=== PATIENT | female | born 1955 | race Caucasian/White ===

== ENCOUNTER 2016-02-25 08:10 | Inpatient (IN) | payer OTHER ==
[2016-02-25] VITALS (8 sets, daily range): BP systolic 90–125; BP diastolic 59–79; PULSE 84–102; TEMP 36.5–37.1; O2SAT 95–98; Ht 162.6 cm; Wt 77.4 kg
[~2016-02-25] VITALS: Ht 162.6 cm; Wt 77.4 kg
[~2016-02-25 08:10] MED LIST: ACET-1256 PO; CHOL100010 PO; FERR1TAB13 PO; LACTATED RINGER'S 1000ML 1,000 ML IV SCH; MULTTAB58 PO
[2016-02-25 08:45] LABS: BASO % 0.2 %; BASO ABS # 0.02 K/uL (0-0.2); EOS % 2.7 %; HEMATOCRIT 30.3 % (37-47); IG% 0.2 %; LYMPH % 19.3 %; MEAN CELL VOLUME 79.1 fL (80-100); MEAN PLATELET VOLUME 9.9 fL (7.4-10.4); MONO % 9.4 %; NEUT % 68.2 %; PLATELET COUNT 358 K/uL (130-400); RED BLOOD COUNT 3.83 M/uL (4.2-5.4); WHITE BLOOD COUNT 8.27 K/uL (4.8-10.8)
[2016-02-25 09:02] LABS: COMPLETE YES; MEAN CORPUSCULAR HGB CONC 30.4 g/dl (32-36)
--- NOTE | 2016-02-25 09:38 | History & Physical Bridge Note ---
H&P Re-Evaluation Bridge Note: I have examined the patient, reviewed the History & Physical and in the interval since the performance of the History & Physical I have noted the following changes of clinical significance: No changes noted since last seen had 2 u prbc onel 1 week ago denies any continues bleeding per rectum
[2016-02-25] MEDS ORDERED: MIDAZOLAM HCL 1 MG/ML 2ML VIAL ONE (10:12)
[2016-02-25] MEDS ORDERED: PROPOFOL IV EMULSION 10 MG/ML 20 ML VIAL IV ONE (10:12)
[2016-02-25] MEDS ORDERED: ONDANSETRON INJ 2 MG/ML 2 ML VIAL ONE ×2 (10:12→14:06)
[2016-02-25] MEDS ORDERED: DEXAMETHASONE SOD INJ 4 MG/ML VIAL ONE (10:12)
[2016-02-25] MEDS ORDERED: LIDOCAINE HCL 2% 2 ML VIAL (20MG/ML) ONE (10:12)
[2016-02-25] MEDS ORDERED: GLYCOPYRROLATE INJ 0.2 MG/ML VIAL ONE ×2 (10:12→14:06)
[2016-02-25] MEDS ORDERED: NEOSTIGMINE METHYLSULFATE 5 MG/5 ML SYR ONE (10:12)
[2016-02-25] MEDS ORDERED: FENTANYL CITRATE INJ 50 MCG/1 ML 2 ML VIAL ONE (10:13)
[2016-02-25] MEDS ORDERED: SCOPOLAMINE 1.5 MG TDSY TD ONE (11:47)
[2016-02-25] MEDS ORDERED: HYDROmorphone INJ 2 MG/ML SYR/VIAL ONE (12:05)
[2016-02-25] MEDS ORDERED: PHENYLEPHRINE 100MCG/ML 5ML SYR ONE (12:12)
[2016-02-25 12:32] LABS: URINE APPEARANCE CLOUDY (CLEAR); URINE BILIRUBIN NEG (NEG); URINE COLOR YELLOW; URINE NITRITE NEG (NEG); URINE SPECIFIC GRAVITY 1.014 (1.000-1.030); UROBILINOGEN NEG (NEG)
[2016-02-25 12:55] LABS: MANUAL MICROSCOPIC REQUIRED? NO; REVIEW REQ? NO
[2016-02-25] MEDS ORDERED: ONDANSETRON INJ 2 MG/ML 2 ML VIAL IV PRN (14:30)
[2016-02-25] MEDS ORDERED: PROMETHAZINE HCL INJ 12.5 MG in SODIUM CHLORIDE 0.9% 50ML 50 ML IV PRN (14:30)
[2016-02-25] MEDS ORDERED: HYDROmorphone INJ 1 MG/ML SYR IV PRN (14:30)
[2016-02-25] MEDS ORDERED: EpHEDrine SULFATE INJ 50 MG/ML AMP IV PRN (14:30)
[2016-02-25] MEDS ORDERED: NALOXONE HCL 0.4 MG/1 ML VIAL/CARP IV PRN ×2 (14:30→14:45)
[2016-02-25] MEDS ORDERED: FLUMAZENIL 0.1 MG/1 ML 10 ML VIAL IV PRN (14:30)
[2016-02-25] MEDS ORDERED: ATROPINE SULFATE 0.1 MG/ML 5ML SYR IV PRN (14:30)
[2016-02-25] MEDS ORDERED: LABETALOL HCL IV 5 MG/ML 20ML IV PRN (14:30)
[2016-02-25] MEDS: SODIUM CHLORIDE 0.9% 1000ML 1,000 ML IV SCH (14:31)
--- NOTE | 2016-02-25 14:31 | [facility] Post Operative Brief Note ---
Immediate Operative Summary Operative Date Feb 25, 2016. Pre-Operative Diagnosis Adenocarcinoma of Colon Post-Operative Diagnosis Radical Right Colectomy, Cholecystectomy Procedure(s) Performed Radical Right Colectomy, Cholecystectomy Surgeon Dr. De Cornejo Milk Treater Surgeon(s) none Estimated Blood Loss 175ml Findings large right colon lesion with near total occlusion and large mesenteric nodes cholesterolosis gallbladder Specimens A:Right Colon B: Gallbladder and Contents Drains 1/4 ricardo subcut
[2016-02-25] MEDS ORDERED: HYDROmorphone HCL 0.5MG/ML 50 ML CASSETTE ONE (14:45)
[2016-02-25 14:51] LABS: HEMATOCRIT 26.3 % (37-47)
[2016-02-25] MEDS ORDERED: IV FLUIDS COMPLETED PRN (15:15)
[2016-02-25 15:28] LABS: BUN/CREATININE RATIO 6.8 (10-20); CREATININE 0.88 mg/dl (0.60-1.20)
--- NOTE | 2016-02-25 15:38 | Anesthesiology Progress Note ---
Anesthesia Post Op Note Date & Time Feb 25, 2016 at 15:37 Vital Signs Pain Intensity: 0 Vital Signs Past 12 Hours Date Time Temp Pulse Resp B/P Pulse Ox O2 Delivery O2 Flow Rate FiO2 02/25/16 15:25 37.7 91 18 121/72 98 Nasal Cannula 2 02/25/16 15:15 37.7 96 18 118/75 97 Nasal Cannula 2 02/25/16 15:05 95 18 118/75 98 Nasal Cannula 2 02/25/16 14:55 92 14 122/78 98 Mask 10 02/25/16 14:45 90 14 126/78 97 Mask 10 02/25/16 14:36 37.9 82 14 95/52 99 Mask 10 02/25/16 08:44 36.5 84 22 125/76 95 Room Air Notes Mental Status: alert / awake / arousable, participated in evaluation Pt Amnestic to Procedure: Yes Nausea / Vomiting: adequately controlled Pain: adequately controlled Airway Patency, RR, SpO2: stable & adequate BP & HR: stable & adequate Hydration State: stable & adequate Anesthetic Complications: no major complications apparent Dr Cornejo aware of her postop H&H and would prefer to watch for now. Pt stable and doing well.
--- NOTE | 2016-02-25 16:16 | OPERATIVE REPORT ---
DATE OF OPERATION: 02/25/2016 SURGEON: Dr. Cornejo. PREOPERATIVE DIAGNOSIS: Biopsy proven carcinoma right colon. POSTOPERATIVE DIAGNOSES: Same along with chronic cholecystitis. PROCEDURE: Right radical colectomy, cholecystectomy. SUMMARY: The patient was brought into the operating room theater under general anesthesia in supine position. A Whittington catheter was inserted. The abdomen was prepped with Betadine solution and properly draped. Systemic antibiotics were given. We made an incision just at the level of the umbilicus and taken in a cephalad made about 3 inch incision, deepened through subcutaneous tissue. We entered the peritoneal cavity where there was no fluid appreciated. There was no evidence of any metastatic disease. The liver was palpated, it was free of any nodularity. The stomach was smooth. Small bowel was run. There was no pathology identified. No implants down in the pelvic area, but the right colon had a very hard mass, size of a softball that was sort of fixed in the retroperitoneal tissue. We at this point started mobilizing by first dividing the white line of Toldt, elevating the cecum along with the terminal ileum. I elected at this point to divide the terminal ileum about 5 inches from the ileocecal valve, scored the mesentery, that eventually would be scored all the way up to the middle colic vessels. We at this point were able then to elevate partially the cecum without any difficulty, but it made it really difficult to bring out the right colon and pretty much nonmobile. At this point, I enlarged the incision more cephalad to the point that then we came on it in 2 directions, one starting antegrade and one retrograde by first dividing the omentum off the transverse colon developing this plane of dissection till we were able then to elevate the hepatic flexure out, but again we were fixed with this mass that initially was very hard, I could not tell whether or not that may be going into the duodenum. We took our dissection with the retroperitoneal area and found that most of the tissue was just hard and inflamed, but no evidence of very hard tissue or gritty tissue that would make it a direct extension; however, the duodenum the third portion was strictly adherent to the mass that initially I thought it was direct extension even though an endoscopy showed no evidence of any extension into the duodenum. As we mobilized the third portion of the duodenum, going more medially, we were able to get a plane of dissection where the duodenum was completely free. There was no involvement of this and most of the adherence was in the retroperitoneal area, did not involve the renal or the ureter. However, the patient has significant palpable nodes in the mesentery that we would eventually score and take out with the specimen. Even by CAT scan it showed that these large nodes were about 2 cm or so. We continued by first dividing the NENA the terminal ileum then divided the transverse colon just right at the middle colic, we were able then to score the mesentery and ligate it with 2-[address] to its base. There was a small vein that we got into it, a tributary or probably a portal vein as it went underneath the pancreas. We oversewed that with 3-0 silk suture and got that controlled. Prior to doing the anastomosis, once we took the specimen out, I elected to perform a cholecystectomy. The patient has had chronic nausea, we are unsure whether or not it was related to that, we know she had some sludge in the past in the gallbladder; therefore, we took the gallbladder in the antegrade fashion, identifying the cystic duct and ligated with 2-0 silk and clipping it and the cystic artery doubly clipped and divided. Gallbladder was removed in antegrade fashion leaving some of the peritoneum back in the liver bed. Some oozing was appreciated. We packed it off with Gelfoam and with Surgicel and a 4 x 4 we would come back to that. At this point we then closed the mesentery, lining it properly with 3-0 silk suture interruptedly, then we made sure that there was no twisted bowel. Then we did our anastomoses but the 2 staple line were oversewn inverted with 3-0 silk sutures. We did a [id number] anastomosis with 3-0 silk outer layer, 3-0 chromic inner layer, anastomosis was patent. We checked the mesentery, there was no obvious openings. We returned the viscera in the abdomen, we irrigated it copiously. We checked the gallbladder area. There was no further bleeding appreciated. We removed the 4 x 4, took out all the laps. The NG tube was positioned in the stomach, I elected just to clip that overnight. The wound was then closed by #1 PDS [id number]. I also put some retention sutures buried with #2 Vicryl spacing about an inch apart. Subcutaneous tissue was not closed. A quarter inch Shoshana was placed in the subcutaneous and michelle for skin edges. Dressing was applied. The procedure was tolerated well by the patient. Estimated blood loss approximately 175 mL. The patient was taken to the recovery room in good condition. I attest to the content of the Intraoperative Record and any orders documented therein. Any exceptio ns are noted below.
[2016-02-25] MEDS: LACTATED RINGER'S 1000ML 1,000 ML IV SCH (17:29)
[2016-02-25] MEDS: ACETAMINOPHEN IV 1,000 MG in EMPTY BAG 0 ML IV SCH (17:31)
[2016-02-25 17:54] LABS: INR 1.1 (0.9-1.1); PROTHROMBIN TIME (PATIENT) 11.9 SECONDS (9.0-12.0)
[2016-02-25] MEDS: CEFOXITIN IV 2,000 MG in DEXTROSE 5% 50ML 50 ML IV SCH (18:03)
[2016-02-25] MEDS: HEPARIN SOD 5000 UNIT/0.5 ML CARP SQ SCH (21:13)
[2016-02-25] MEDS: HYDROmorphone HCL 0.5MG/ML 50 ML CASSETTE IV PRN (23:01)
[2016-02-26] VITALS (7 sets, daily range): BP systolic 94–108; BP diastolic 56–67; PULSE 76–93; TEMP 36.5–37.1; O2SAT 94–98
[2016-02-26] MEDS: CEFOXITIN IV 2,000 MG in DEXTROSE 5% 50ML 50 ML IV SCH ×2 (00:28→05:49)
[2016-02-26] MEDS: LACTATED RINGER'S 1000ML 1,000 ML IV SCH ×3 (00:28→23:40)
[2016-02-26] MEDS: ACETAMINOPHEN IV 1,000 MG in EMPTY BAG 0 ML IV SCH ×3 (02:06→18:17)
[2016-02-26 04:14] LABS: HEMATOCRIT 24.5 % (37-47); MEAN CORPUSCULAR HEMOGLOBIN 23.5 pg (25-34); MEAN CORPUSCULAR HGB CONC 29.8 g/dl (32-36); MEAN PLATELET VOLUME 9.1 fL (7.4-10.4); PLATELET COUNT 316 K/uL (130-400); WHITE BLOOD COUNT 9.08 K/uL (4.8-10.8)
[2016-02-26 04:33] LABS: BUN/CREATININE RATIO 5.9 (10-20); CALCIUM 8.3 mg/dl (8.5-10.1); CREATININE 0.85 mg/dl (0.60-1.20); POTASSIUM 4.6 mmol/L (3.5-5.1)
[2016-02-26 04:37] LABS: ANISOCYTOSIS PRESENT; COMPLETE YES; HYPOCHROMIA PRESENT; IG% 0.2 %; LYMPH % 6.7 %; LYMPH ABS # 0.61 K/uL (1.2-3.4); MONO % 8.1 %
[2016-02-26] MEDS ORDERED: OXYCODONE/ACETAMINOPHEN 5-325 TAB PO PRN (06:45)
--- NOTE | 2016-02-26 07:07 | SURGERY PROGRESS NOTE ---
DATE: 02/26/2016 DATE: 02/26/2016 Radha is 1st postoperative day status post right radical colectomy and cholecystectomy. She is alert, coherent, having no discomfort, no nausea. Intraoperative findings were discussed with the patient including the CAT scan that may need to extend for the lungs as specific CT scan of the chest to be obtained. PHYSICAL EXAMINATION: The patient's last vitals showed a temperature of 37.1, pulse 78, respirations 16, blood pressure 108/67, O2 sats 94 on 4 liters. I\T\O, she had about 500 mL urine overnight. The NG tube drainage is very minimal. The abdomen is soft. The dressings dry. LABORATORY MARIN: This morning her hemoglobin is 7.3. BUN is 5 and creatinine 0.85. Preoperatively, the hemoglobin was 9.2. Postoperatively, 7.8, so there is no active bleeding. Some of this may be dilutional. I will not transfuse the patient. She is used to having a hemoglobin about 7 or so and there is no evidence that she is having any systemic effects from it. We have not given her any blood or any transfusions since surgery, but she did have 2 units of blood approximately a week ago prior to her surgery for hemoglobin about 7.2 and that was in anticipation of surgery. At this point we will increase activity, discontinue the NG tube and discontinue the Whittington and may minimally start her on some clear liquids.
[2016-02-26] MEDS: HYDROmorphone HCL 0.5MG/ML 50 ML CASSETTE IV PRN ×3 (07:09→22:52)
[2016-02-26] MEDS: HEPARIN SOD 5000 UNIT/0.5 ML CARP SQ SCH ×2 (08:45→21:17)
[2016-02-26] MEDS: SODIUM CHLORIDE 0.9% 1000ML 1,000 ML IV SCH (14:12)
[2016-02-27] VITALS (11 sets, daily range): BP systolic 102–144; BP diastolic 64–88; PULSE 64–84; TEMP 36.6–39.8; O2SAT 91–98
[2016-02-27] MEDS: ACETAMINOPHEN IV 1,000 MG in EMPTY BAG 0 ML IV SCH ×3 (01:42→17:55)
[2016-02-27 06:35] LABS: HEMATOCRIT 22.8 % (37-47); MEAN CELL VOLUME 81.1 fL (80-100); MEAN CORPUSCULAR HEMOGLOBIN 23.8 pg (25-34); MEAN CORPUSCULAR HGB CONC 29.4 g/dl (32-36); MEAN PLATELET VOLUME 9.3 fL (7.4-10.4); PLATELET COUNT 307 K/uL (130-400); RED BLOOD COUNT 2.81 M/uL (4.2-5.4); WHITE BLOOD COUNT 9.29 K/uL (4.8-10.8)
[2016-02-27 06:55] LABS: BUN/CREATININE RATIO 8.3 (10-20); CALCIUM 8.5 mg/dl (8.5-10.1); CREATININE 0.78 mg/dl (0.60-1.20); POTASSIUM 3.9 mmol/L (3.5-5.1)
[2016-02-27 07:02] LABS: ANISOCYTOSIS PRESENT; BASO % 0.1 %; BASO ABS # 0.01 K/uL (0-0.2); COMPLETE YES; EOS % 0.2 %; HYPOCHROMIA PRESENT; IG% 0.2 %; LYMPH % 22.3 %; LYMPH ABS # 2.07 K/uL (1.2-3.4); MICROCYTOSIS PRESENT; MONO % 8.9 %; NEUT % 68.3 %
--- NOTE | 2016-02-27 07:04 | SURGERY PROGRESS NOTE ---
DATE: 02/27/2016 HISTORY OF PRESENT ILLNESS: Radha is resting comfortably in no distress. Her color looks good. She is stating that she has not used her [employer] for any pain management since the acetaminophen seemed to be sufficient. Her last vitals showed a temperature of 36.7, pulse 84, respirations 17, blood pressure 102/64, O2 sats 98 on 4 liters. Her I\T\O have been slightly positive. She had 625 of urine yesterday. Her lab this morning, the PRP is pending, but the hemoglobin which was 7.3 yesterday, is down to 6.7. Clinically, she has no manifestation of any acute bleed, I think this is all equilibration, but having said so, I think will transfuse 1 unit of blood because yesterday sometimes in the day she became a little bit tachycardic. She has had no significant hypotension. The oxygen I have asked initially to take her off at this point, but I think we will keep her off for now, but we will discontinue the SCDs as she is on heparin. Her abdomen is completely benign. She feels she has some rumbling and has not passed any flatus, which I would suspect will start to happen in the next 24 hours. JIM
[2016-02-27] MEDS: LACTATED RINGER'S 1000ML 1,000 ML IV SCH ×3 (07:50→17:54)
[2016-02-27] MEDS: HEPARIN SOD 5000 UNIT/0.5 ML CARP SQ SCH ×2 (09:51→21:37)
[2016-02-27 16:28] LABS: BASO % 0.1 %; BASO ABS # 0.01 K/uL (0-0.2); EOS % 1.2 %; IG% 0.2 %; LYMPH ABS # 2.57 K/uL (1.2-3.4); MEAN CELL VOLUME 81.4 fL (80-100); MEAN CORPUSCULAR HEMOGLOBIN 24.4 pg (25-34); MEAN PLATELET VOLUME 9.5 fL (7.4-10.4); MONO % 9.9 %; NEUT % 59.6 %; PLATELET COUNT 287 K/uL (130-400); RED BLOOD COUNT 3.07 M/uL (4.2-5.4); WHITE BLOOD COUNT 8.87 K/uL (4.8-10.8)
[2016-02-27 17:05] LABS: COMPLETE YES; HYPOCHROMIA PRESENT; POLYCHROMASIA 1+
[2016-02-27] MEDS: ONDANSETRON INJ 2 MG/ML 2 ML VIAL IV PRN (22:53)
[2016-02-28] MEDS: ACETAMINOPHEN IV 1,000 MG in EMPTY BAG 0 ML IV SCH ×2 (01:39→09:40)
[2016-02-28] MEDS: ONDANSETRON INJ 2 MG/ML 2 ML VIAL IV PRN (05:39)
[2016-02-28 06:55] LABS: HEMATOCRIT 28.8 % (37-47); MEAN CELL VOLUME 80.2 fL (80-100); MEAN CORPUSCULAR HEMOGLOBIN 23.7 pg (25-34); MEAN CORPUSCULAR HGB CONC 29.5 g/dl (32-36); MEAN PLATELET VOLUME 9.9 fL (7.4-10.4); PLATELET COUNT 340 K/uL (130-400); RED BLOOD COUNT 3.59 M/uL (4.2-5.4); WHITE BLOOD COUNT 5.63 K/uL (4.8-10.8)
[2016-02-28] MEDS: HEPARIN SOD 5000 UNIT/0.5 ML CARP SQ SCH (07:40)
[2016-02-28] MEDS ORDERED: OXYC-57 PO (07:41)
--- NOTE | 2016-02-28 07:43 | Discharge Instructions ---
Discharge Instructions Admission Reason for Admission: Colon Cancer Discharge Discharge Diagnosis / Problem: Right colectomy Discharge Goals Goal(s): Improve disease control Activity Recommendations Activity Limitations: per Instructions/Follow-up section Lifting Limitations: no more than 10 pounds Shower/Bathe: no limitations (ok to shower) Driving or Machine Use: resume 3 days after discharge . Instructions / Follow-Up Instructions / Follow-Up Next week to have michelle removed, call [phone] if you do not already have an appt Current Hospital Diet Patient's current hospital diet: Clear Liquid Diet Discharge Diet Recommended Diet: Regular Diet Procedures Procedures Performed: Radical Right Colectomy, Cholecystectomy Pending Studies Studies pending at discharge: no Medical Emergencies . Who to Call and When: Medical Emergencies: If at any time you feel your situation is an emergency, please call 911 immediately. . Non-Emergent Contact Non-Emergency issues call your: Surgeon Call Non-Emergent contact if: you have a fever, temperature is above 101.5, your pain is not controlled, wound has increased redness, wound has increased pain . "Provider Documentation" section prepared by David Mcleod. VTE Core Measure Inpt VTE Proph given/why not?: Unfractionated heparin SQ, SCD's
[2016-02-28 08:01] VITALS: BP 126/74; PULSE 72; TEMP 36.9; O2SAT 94
--- NOTE | 2016-02-28 11:12 | Surgery Progress Note ---
Surgery Progress Note Date of Service Feb 28, 2016. Subjective tolerating diet (regular this AM), anxious to go home Objective Vital Signs: Date Time Temp Pulse Resp B/P Pulse Ox O2 Delivery O2 Flow Rate FiO2 02/28/16 08:24 Room Air 02/28/16 08:01 36.9 72 20 126/74 94 Room Air 02/28/16 07:20 Room Air 02/27/16 22:50 Room Air 02/27/16 22:47 36.9 75 16 144/88 94 Room Air 02/27/16 15:15 91 Room Air 02/27/16 15:09 36.7 82 18 127/81 91 Room Air 02/27/16 12:55 36.6 75 16 120/76 93 Room Air Abdomen: non distended, soft Incision(s): clean, dry Laboratory Results: Results Past 24 Hours Test 02/27/16 16:15 02/28/16 06:30 Range/Units White Blood Count 8.87 5.63 4.8-10.8 K/uL Red Blood Count 3.07 3.59 4.2-5.4 M/uL Hemoglobin 7.5 8.5 12.0-16.0 g/dL Hematocrit 25.0 28.8 37-47 % Mean Corpuscular Volume 81.4 80.2 80-100 fL Mean Corpuscular Hemoglobin 24.4 23.7 25-34 pg Mean Corpuscular Hemoglobin Concent 30.0 29.5 32-36 g/dl Platelet Count 287 340 130-400 K/uL Mean Platelet Volume 9.5 9.9 7.4-10.4 fL Neutrophils (%) (Auto) 59.6 % Lymphocytes (%) (Auto) 29.0 % Monocytes (%) (Auto) 9.9 % Eosinophils (%) (Auto) 1.2 % Basophils (%) (Auto) 0.1 % Neutrophils # (Auto) 5.28 1.4-6.5 K/uL Lymphocytes # (Auto) 2.57 1.2-3.4 K/uL Monocytes # (Auto) 0.88 0.11-0.59 K/uL Eosinophils # (Auto) 0.11 0-0.5 K/uL Basophils # (Auto) 0.01 0-0.2 K/uL RDW Standard Deviation 54.9 53.8 36.4-46.3 fL RDW Coefficient of Variation 18.4 18.1 11.5-14.5 % Immature Granulocyte % (Auto) 0.2 % Immature Granulocyte # (Auto) 0.02 0.00-0.02 K/uL Polychromasia 1+ Hypochromasia PRESENT Assessment & Plan s/p right colectomy tolerating diet ok for discharge f/u next week for staple removal
[2016-02-28 11:46] VITALS: BP 126/74; PULSE 72; TEMP 36.9; O2SAT 94
[2016-02-28] MEDS: LACTATED RINGER'S 1000ML 1,000 ML IV SCH (11:46)
--- NOTE | 2016-02-28 15:44 | DISCHARGE SUMMARY ---
PRIMARY DISCHARGE DIAGNOSIS: 1. Right colon cancer. 2. Acute on chronic anemia. 3. Chronic cholecystitis. PROCEDURE PERFORMED: Radical right colectomy and cholecystectomy. HOSPITAL COURSE: The patient is a 61-year-old female with a biopsy proven carcinoma of the right colon, admitted through same day and taken to the operating room for right colectomy and cholecystectomy. Procedure was well tolerated. She was transferred to the surgical floor. On postoperative day 1 her hemoglobin dropped to 7.3 from 9 preoperatively, but she remained hemodynamically stable and was not transfused at that time. Nasogastric tube and Whittington catheter was removed. She was started on liquid diet. By day 2 she was tolerating IV acetaminophen for pain. Her hemoglobin dropped again to 6.7. She was transfused 1 unit of packed red blood cells. On the next day, day 3, her hemoglobin had improved to 8.5. She had multiple bowel movements. She was able to tolerate an advancing diet to regular. Her incision was clean and dry. She was stable for discharge. Pathology was pending at time the time of discharge. DISCHARGE INSTRUCTIONS: Discharge home. Follow up with Dr. Cornejo in 1 week. DISCHARGE MEDICATIONS: Percocet 1-2 tablets every 4 hours as needed, resume her home supplements, vitamin D, multivitamin and ferrous sulfate. Hold additional Tylenol while she is taking Percocet.
[2016-03-17] MEDS ORDERED: ACET-1311 PO (16:16)
[2016-03-17] MEDS ORDERED: MISCTAB26 PO (16:16)
[2016-03-17] MEDS ORDERED: MISCCAP80 PO (16:16)
== END 2016-02-28 12:20 | disposition home or self-care (01) | DRG 330 ==
LOC: ENRESERVDT → ENRESERVTM → C.ACU 08:10 → C.MSW 14:42 → OBSVTOIN 02-26 08:43
PROVIDERS: ADMIT Surgery; ATTEND Surgery
PROC: 0FT40ZZ Resection of Gallbladder, Open Approach (ICD-10-PCS; principal; 2016-02-25 09:45)
PROC: 0DBK0ZZ Excision of Ascending Colon, Open Approach (ICD-10-PCS; principal; 2016-02-25 09:45)
DX: C18.2 Malignant neoplasm of ascending colon (principal); K80.10 Calculus of gallbladder with chronic cholecystitis without obstruction; D64.9 Anemia, unspecified; E66.9 Obesity, unspecified; Z68.32 Body mass index [BMI] 32.0-32.9, adult; Z87.891 Personal history of nicotine dependence

== ENCOUNTER → 2016-03-17 | Outpatient (CLI) | payer OTHER ==
[~2016-03-17] MED LIST changes: -ACET-1256 PO; +ACET-1311 PO; -LACTATED RINGER'S 1000ML 1,000 ML IV SCH; +MISCCAP80 PO; +MISCTAB26 PO; +OPTIRAY 320 IV PRN; +OXYC-57 PO
--- NOTE | 2016-03-17 09:58 | DIAGNOSTIC IMAGING REPORT ---
CT SCAN OF THE CHEST WITH IV CONTRAST CLINICAL HISTORY: Adenocarcinoma of the colon. COMPARISON STUDY: No priors. TECHNIQUE: Following the IV administration of 94 cc of Optiray 320, CT scan of the thorax was performed from the thoracic inlet to the upper abdomen. Images are reviewed in the axial, sagittal, and coronal planes. IV contrast was administered without complication. CT DOSE: 278.87 mGy.cm FINDINGS: Thyroid: Imaged portions of the thyroid gland are normal in size and attenuation. Thoracic aorta: There is mild after carotid calcification of the thoracic aorta, which is normal in caliber and demonstrates 4-vessel variant arch anatomy. No dissection is seen. Pulmonary vasculature: The pulmonary trunk is normal in caliber. There are no filling defects identified in the central pulmonary vessels to indicate pulmonary embolus. Note that this examination was not protocoled for evaluation of the pulmonary arteries. Heart: The heart is normal in size and configuration, and without pericardial effusion. Lungs and pleural spaces: There is no airspace consolidation or pleural effusion. Numerous calcified granulomas are identified. The trachea and central airways are clear. There is a 5 mm noncalcified left lower lobe nodule seen on image #189. Mediastinum: There is no mediastinal lymphadenopathy. Calcified mediastinal nodes are identified. Nasrin: Calcified hilar nodes are identified. Axillae: There is no axillary lymphadenopathy. Upper abdomen: Cholecystectomy clips are identified. There are scattered diverticula seen in the partially imaged left colon. Calcified splenic granulomas are noted. Partially imaged upper abdominal viscera is otherwise within normal limits. Skeletal structures: The skeletal structures are osteopenic. No lytic or blastic bony lesions are seen. A large hemangioma is seen in the body of T4. IMPRESSION: 1. There is no evidence of intrathoracic metastatic disease. 2. There is no airspace consolidation or pleural effusion. 3. There are calcified mediastinal and hilar lymph nodes, numerous calcified pulmonary granulomas, as well as calcified splenic granulomas. The appearance is consistent with remote granulomatous infection. 4. There is an indeterminant but low suspicion 5 mm noncalcified left lower lobe pulmonary nodule. This can be followed as per the Fleischner criteria. See below. Please refer to below summary of Fleischner criteria recommendations for follow-up of incidental CT nodules (Zhen Motta, Guidelines for management of small pulmonary nodules detected on CT scans: A statement from the Fleischner Society, Radiology 237: [id number].) Low Risk Patient: Minimal or no smoking or other known risk factors for malignancy <=4 mm: No follow-up needed. >4-6 mm: Initial follow-up CT at 12 months; if unchanged, no further follow-up. >6-8 mm: Initial follow-up CT at 6-12 months then at 18-24 months if no change. >8 mm: Follow-up CT at \R\3, 9, 24 months, or PET and/or biopsy. High Risk Patient: History of smoking or other known risk factors <=4 mm: Follow-up at 12 months; if unchanged, no further follow-up. >4-6 mm: Initial follow-up CT at 6-12 months then at 18-24 months if no change. >6-8 mm: Initial follow-up CT at 3-6 months then at 9-12 and 24 months if no change. >8 mm: Same as low risk patient. Note: Nodule size measured as average of length and width. Ground glass or partly solid nodules may require longer follow-up to exclude indolent adenocarcinoma. Electronically signed by: Santos Pride M.D. 03/17/2016 9:56 AM Dictated Date/Time: 03/17/2016 9:44 AM
== END | disposition home or self-care (01) ==
LOC: C.CTS 08:53
PROVIDERS: ATTEND Surgery
DX: C18.9 Malignant neoplasm of colon, unspecified (principal); R59.9 Enlarged lymph nodes, unspecified; J84.10 Pulmonary fibrosis, unspecified; D73.89 Other diseases of spleen; R91.1 Solitary pulmonary nodule

== ENCOUNTER 2016-03-24 10:15 | Day surgery (SDC) | payer OTHER ==
[2016-03-17 16:17] VITALS: BMI 29.0
[~2016-03-24] VITALS: Ht 162.6 cm; Wt 78.6 kg
--- NOTE | 2016-03-24 05:54 | History & Physical Bridge Note ---
H&P Re-Evaluation Bridge Note: I have examined the patient, reviewed the History & Physical and in the interval since the performance of the History & Physical I have noted the following changes of clinical significance: No changes noted pt onel 3 wweks post op right radical resection for ca with positive nodes here for a-port placement for anticipated chemo
[~2016-03-24 10:15] MED LIST changes: +LACTATED RINGER'S 1000ML 1,000 ML IV SCH; -OPTIRAY 320 IV PRN; -OXYC-57 PO
[2016-03-24 10:25] VITALS: BP 132/72; PULSE 83; TEMP 36.7; Ht 162.6 cm; Wt 78.6 kg
[2016-03-24] MEDS ORDERED: MIDAZOLAM HCL 1 MG/ML 2ML VIAL ONE ×2 (12:35→12:50)
[2016-03-24] MEDS ORDERED: FENTANYL CITRATE INJ 50 MCG/1 ML 2 ML VIAL ONE (12:35)
[2016-03-24] MEDS ORDERED: ONDANSETRON INJ 2 MG/ML 2 ML VIAL ONE (13:19)
[2016-03-24] MEDS ORDERED: LIDOCAINE HCL 2% 2 ML VIAL (20MG/ML) ONE (13:19)
[2016-03-24] MEDS ORDERED: PROPOFOL IV EMULSION 10 MG/ML 20 ML VIAL IV ONE (13:19)
[2016-03-24] MEDS ORDERED: CEFAZOLIN SOD 1 GM VIAL ONE (13:21)
[2016-03-24] MEDS ORDERED: BACITRACIN 50000 UNIT VIAL IR ONE (13:33)
[2016-03-24] MEDS ORDERED: LIDOCAINE HCL 1% 20 ML VIAL INJ ONE (13:33)
--- NOTE | 2016-03-24 13:42 | [facility] Post Operative Brief Note ---
Immediate Operative Summary Operative Date Mar 24, 2016. Pre-Operative Diagnosis Adenocarinoma of Colon Post-Operative Diagnosis Adenocarinoma of Colon Procedure(s) Performed Infusaport Insertion mri compatible left subclavian Surgeon Dr. Cornejo [employer] Surgeon(s) 0 Estimated Blood Loss 3 mL Findings as preop Specimens None Anesthesia .5% marcaine plain 10cc
[2016-03-24] MEDS ORDERED: OXYC-57 PO (13:43)
[2016-03-24] MEDS ORDERED: HYDROmorphone INJ 1 MG/ML SYR IV PRN (13:45)
[2016-03-24] MEDS ORDERED: PROMETHAZINE HCL INJ 12.5 MG in SODIUM CHLORIDE 0.9% 50ML 50 ML IV PRN (13:45)
[2016-03-24] MEDS ORDERED: ATROPINE SULFATE 0.1 MG/ML 5ML SYR IV PRN (13:45)
[2016-03-24] MEDS ORDERED: EpHEDrine SULFATE INJ 50 MG/ML AMP IV PRN (13:45)
[2016-03-24] MEDS ORDERED: ONDANSETRON INJ 2 MG/ML 2 ML VIAL IV PRN (13:45)
--- NOTE | 2016-03-24 13:45 | Discharge Instructions ---
Discharge Instructions Visit Reason for Visit: Colon Cancer Discharge Discharge Diagnosis / Problem: s/p mri compatible port left subclavian Discharge Goals Goal(s): Decrease discomfort Activity Recommendations Lifting Limitations: no more than 10 pounds Shower/Bathe: tomorrow Driving or Machine Use: resume 3 days after discharge Anesthesia . Post Anesthesia Instructions: If you have had General Anesthesia or IV Sedation: * Do not drive today. * Resume driving when surgeon permits. * Do not make important decisions or sign legal documents today. * Call surgeon for: 1. Temperature elevations greater than 101 degrees F. 2. Uncontrollable pain. 3. Excessive bleeding. 4. Persistent nausea and vomiting. 5. Medication intolerance (nausea, vomiting or rash). * For nausea and vomiting use only clear liquids such as: tea, soda, bouillon until nausea subsides, then gradually increase diet as tolerated. * If you have any concerns or questions, call your surgeon's office. If physician is unavailable and it is an emergency, call 911 or go to the nearest emergency room. . Instructions / Follow-Up Instructions / Follow-Up call [phone] for any problems return office 1 week Diet Recommendations Recommended Home Diet: resume previous diet Procedures Procedures Performed: Infusaport Insertion mri compatible left subclavian Medical Emergencies . Who to Call and When: Medical Emergencies: If at any time you feel your situation is an emergency, please call 911 immediately. . Non-Emergent Contact . . "Provider Documentation" section prepared by De Cornejo.
[2016-03-24] MEDS ORDERED: LACTATED RINGER'S 1000ML 1,000 ML IV SCH (13:46)
[2016-03-24] MEDS ORDERED: OXYCODONE/ACETAMINOPHEN 5-325 TAB PO PRN (14:00)
--- NOTE | 2016-03-24 14:11 | Anesthesiology Progress Note ---
Anesthesia Post Op Note Date & Time Mar 24, 2016 at 14:11 Vital Signs Pain Intensity: 0 Vital Signs Past 12 Hours Date Time Temp Pulse Resp B/P Pulse Ox O2 Delivery O2 Flow Rate FiO2 03/24/16 14:05 71 16 107/70 95 Room Air 03/24/16 13:55 70 16 112/72 92 Room Air 03/24/16 13:45 36.4 71 16 110/70 100 Room Air 03/24/16 10:25 36.7 83 20 132/72 Notes Mental Status: alert / awake / arousable, participated in evaluation Pt Amnestic to Procedure: Yes Nausea / Vomiting: adequately controlled Pain: adequately controlled Airway Patency, RR, SpO2: stable & adequate BP & HR: stable & adequate Hydration State: stable & adequate Anesthetic Complications: no major complications apparent
[2016-03-24 14:15] VITALS: PULSE 76
[2016-03-24 14:25] VITALS: BP 104/71; TEMP 36.5; O2SAT 95
--- NOTE | 2016-03-24 14:49 | DIAGNOSTIC IMAGING REPORT ---
CHEST ONE VIEW PORTABLE CLINICAL HISTORY: /p mri compatible port left subclavian COMPARISON STUDY: No previous studies for comparison. FINDINGS: The bones soft tissues and hemidiaphragms are normal. The cardiomediastinal silhouette is normal. The lungs are clear. The pulmonary vasculature is normal. Central catheter in superior vena cava. Port is MRI compatible IMPRESSION: MRI compatible central port. Negative chest. Electronically signed by: Demetrius Moreno M.D. 03/24/2016 2:48 PM Dictated Date/Time: 03/24/2016 2:42 PM
--- NOTE | 2016-03-24 14:58 | OPERATIVE REPORT ---
DATE OF OPERATION: 03/24/2016 SURGEON: Dr. Cornejo. PREOPERATIVE DIAGNOSIS: Metastatic colon cancer, need for chemotherapy. POSTOPERATIVE DIAGNOSIS: Same. PROCEDURE: MRI compatible port placed in left subclavian. DESCRIPTION OF PROCEDURE: The patient was brought into the operating room. A roll placed underneath her shoulders. Chest and neck was prepped with Betadine scrubbing solution and properly draped. Systemic antibiotics was given, some IV sedation was given and then we used 0.5% Marcaine, total of about 10 mL to first infiltrate the angle of the clavicle in the left side, sufficient enough to achieve anesthetic. I then placed the patient in Trendelenburg position. We accessed the subclavian vein on the second passage without any problems. Guidewire fluoroscopically positioned in superior vena cava. At this point, 2 fingerbreadths below, I made a counter incision about 2 inches long, deepened through subcutaneous tissue onto the chest wall. We actually went above the superficial fascia to create a pocket sufficient enough thin on the skin and had to be able to feel the MRI compatible port. We checked the pocket that it was sufficient to accommodate the port. At this point, we tunneled more cephalad and we were able to place a guidewire through this and bring it through this incision where fluoroscopically we could see the guidewire still in the superior vena cava. We dilated the tract with the introducer and placed the catheter and went up to about 25 cm or so positioned in superior vena cava right atrial area. We at this point cut it appropriately. Placed the black marker on and secured onto the catheter. I placed it on the reservoir. We aspirated and flushed quite easily. The rest were then placed in the previously made pocket, suturing it 3/4 sutures with 2-0 Prolene. We imaged the system. The catheter appeared to be in the atrium, but the patient has fairly large breast that once we elevated up, it would be up towards the superior vena cava. We closed the wound after we flushed it percutaneously to check again the access in the field without problem with 2-0 and 3-0 Dexon and 4-0 Monocryl. Steri-Strips applied. The procedure was tolerated well by the patient and was taken to recovery room in good condition. At this time, a chest x-ray is pending. I attest to the content of the Intraoperative Record and any orders documented therein. Any exceptions are noted below. MTDD
[2016-03-24 15:00] VITALS: BP 104/71; TEMP 36.7; O2SAT 97
== END 2016-03-24 15:13 | disposition home or self-care (01) ==
LOC: C.ACU 10:15
PROVIDERS: ATTEND Surgery
DX: C18.9 Malignant neoplasm of colon, unspecified (principal); Z88.1 Allergy status to other antibiotic agents; Z90.49 Acquired absence of other specified parts of digestive tract; Z87.891 Personal history of nicotine dependence; Z68.29 Body mass index [BMI] 29.0-29.9, adult; Z80.3 Family history of malignant neoplasm of breast; Z90.89 Acquired absence of other organs; Z82.3 Family history of stroke; Z82.49 Family history of ischemic heart disease and other diseases of the circulatory system

== ENCOUNTER → 2016-09-15 | Outpatient (CLI) | payer OTHER ==
[~2016-09-15] MED LIST changes: -LACTATED RINGER'S 1000ML 1,000 ML IV SCH; +OPTIRAY 320 IV PRN; +OXYC-57 PO
--- NOTE | 2016-09-15 12:07 | DIAGNOSTIC IMAGING REPORT ---
(CHEST) THORAX WITH CT DOSE: 694.14 mGy.cm HISTORY: Adenocarcinoma C18.2 TECHNIQUE: Multiaxial CT images of the chest were performed following the intravenous administration of contrast. A dose lowering technique was utilized adhering to the principles of ALARA. COMPARISON: 03/17/2016 FINDINGS: No change in the prior study. Unchanging calcified mediastinal and hilar nodes. Unchanging calcified granulomas. Unchanging 5 mm nodular density left lung base. There are no new or interval findings. IMPRESSION: 1. Unchanged study compared to the prior exam. 2. Unchanging chronic granulomatous change. 3. Unchanging 5 mm noncalcified nodule left base. Prior L4. Continued follow-up per Fleischner criteria. Please refer to below summary of Fleischner criteria recommendations for follow-up of incidental CT nodules (Zhen Motta, Guidelines for management of small pulmonary nodules detected on CT scans: A statement from the Fleischner Society, Radiology 237: [phone].) SOLID NODULES Solitary nodule size: <6 mm * low risk patients: no follow-up needed * high risk patients: optional CT at 12 months Solitary nodule size: 6-8 mm * low risk patients: follow-up at 6-12 months, then consider further follow-up at 18-24 months * high risk patients: initial follow-up CT at 6-12 months and then at 18-24 months if no change Solitary nodule size: >8 mm * either low or high risk patients - consider follow-up CT at 3 months, and/or CT-PET, and/or biopsy Multiple nodules size: <6 mm * low risk patients: no routine follow-up * high risk patients: optional CT at 12 months Multiple nodules size: 6-8 mm * low risk patients: follow-up at 3-6 months, then consider further follow-up at 18-24 months * high risk patients: follow-up at 3-6 months, then at 18-24 months if no change Multiple nodules size: >8 mm * low risk patients: follow-up at 3-6 months, then consider further follow-up at 18-24 months * high risk patients: follow-up at 3-6 months, then at 18-24 months if no change Note: newly detected indeterminate nodule in persons 35 years of age or older. * Low risk patients: minimal or absent history of smoking and/or other known risk factors * high risk patients: history of smoking or of other known risk factors (e.g. first degree relative with lung cancer, or exposure to asbestos, radon, uranium) * if a nodule up to 8 mm is partly solid or is ground glass further follow-up is required after 24 months to exclude possible slow growing adenocarcinoma (SILVANA) SUBSOIL NODULES Solitary pure ground-glass nodule * nodule size <6 mm - no CT follow-up required * nodule size >=6 mm - follow-up CT at 6-12 months, then every 2 years until 5 years Solitary part-solid nodule * nodule size <6 mm - no CT follow-up required * nodule size >=6 mm - follow-up CT at 3-6 months. If unchanged, and solid component remains <6 mm, then annual follow-up for 5 years Multiple subsolid nodules * nodule size <6 mm - follow-up CT at 3-6 months, consider further follow-up at 2 and 4 years if stable * nodule size >=6 mm - follow-up CT at 3-6 months, subsequent management based on the most suspicious nodule(s) The above report was generated using voice recognition software. It may contain grammatical, syntax or spelling errors. Electronically signed by: Demetrius Moreno M.D. 09/15/2016 12:06 PM Dictated Date/Time: 09/15/2016 12:03 PM
--- NOTE | 2016-09-15 12:38 | DIAGNOSTIC IMAGING REPORT ---
CT OF THE ABDOMEN AND PELVIS WITH CONTRAST CLINICAL HISTORY: Colon cancer. CT for restaging. COMPARISON STUDY: CT of the abdomen and pelvis February 12, 2016. TECHNIQUE: Following IV administration of 94 mL of Optiray-320, axial images of the abdomen and pelvis were obtained from the lung bases to the proximal femurs. Images were reviewed in the axial, sagittal, and coronal planes. IV contrast was administered without complication. A dose lowering technique was utilized adhering to the principles of ALARA. Oral contrast was administered. FINDINGS: Note is made of a enlarged right paraaortic lymph node shown on axial image 56 of 466. This is adjacent to the distal descending thoracic aorta. This node measures 2.3 x 1.6 cm. There has been interval development of upper abdominal lymphadenopathy, including a 3.2 x 2.4 cm aortocaval lymph node shown on image 171. An index left para-aortic lymph node located inferior to the left renal vein measures 1.9 x 2.3 cm and is shown on image 149. An index right para-aortic lymph node measures 1.8 x 1.4 cm. There are multiple mildly enlarged mesenteric lymph nodes as well. There is no evidence for a bowel obstruction status post right hemicolectomy. No hepatic lesions are identified. There are calcified granulomas within the spleen. The adrenal glands, kidneys and pancreas are unremarkable. There is no hydronephrosis. There is no biliary or pancreatic ductal dilatation status post cholecystectomy. IMPRESSION: 1. Interval development of numerous moderately enlarged upper abdominal lymph nodes, including mesenteric and retroperitoneal/paraaortic lymphadenopathy. Index aortocaval lymph node measures 2.2 x 2.4 cm with mild mass effect upon the IVC. The findings are consistent with jaye spread of disease. 2. No bowel obstruction status post right hemicolectomy. 3. Colonic diverticulosis without evidence for acute diverticulitis. Electronically signed by: Georges Venegas M.D. 09/15/2016 12:36 PM Dictated Date/Time: 09/15/2016 12:22 PM
== END | disposition home or self-care (01) ==
LOC: C.CTS 11:37
PROVIDERS: ATTEND Internal Medicine Hematology & Oncology
DX: C18.2 Malignant neoplasm of ascending colon (principal); R59.0 Localized enlarged lymph nodes; K57.90 Diverticulosis of intestine, part unspecified, without perforation or abscess without bleeding; R91.1 Solitary pulmonary nodule

== ENCOUNTER → 2016-12-16 | Outpatient (CLI) | payer OTHER ==
[~2016-12-16] MED LIST changes: -OXYC-57 PO
--- NOTE | 2016-12-16 07:56 | DIAGNOSTIC IMAGING REPORT ---
CT ABD/PELVIS IV AND ORAL CONT CLINICAL HISTORY: COLON CA COMPARISON STUDY: 09/15/2016 TECHNIQUE: Following the IV administration of 92 mL of Optiray-320, CT scan of the abdomen and pelvis was performed from the lung bases to the proximal femurs. Images are reviewed in the axial, sagittal, and coronal planes. IV contrast was administered without complication. A dose lowering technique was utilized adhering to the principles of ALARA. CT DOSE: FINDINGS: Lower chest: There are bibasal atelectatic changes. There are left lower lobe calcified granulomas. Liver: There is mild hepatic steatosis. No focal hepatic masses are visualized. Gallbladder: Surgically absent Spleen: There are splenic granulomas. No suspicious splenic masses are visualized. Pancreas: Unremarkable. Adrenal glands: Unremarkable. Kidneys: There is symmetric renal cortical enhancement. The kidneys are normal in size without hydronephrosis. Bowel: There are no transition zones indicate bowel obstruction. There is colonic diverticulosis. There are no acute peridiverticular inflammatory changes. There are postsurgical changes of a right hemicolectomy. Peritoneum: There is no intraperitoneal free air or abdominal ascites. Vasculature: The abdominal aorta is normal in course and caliber. Adenopathy: There is been interval decrease in the size of the previously identified enlarged central mesenteric lymph nodes.. There is minimal infiltration of the central mesenteric fat. There is interval decrease in the size of the aortocaval nodes. The largest measures 11 mm in short axis compared to a prior diameter of 24 mm. An index left para-aortic lymph node at the level of the renal hilum, currently measures 1 cm compared to a prior diameter of 19 mm. Pelvic viscera: The bladder, and pelvic viscera are unremarkable. Skeletal structures: No destructive osseous lesions are seen. IMPRESSION: 1. No CT evidence of hepatic metastasis 2. Postsurgical changes of a right hemicolectomy 3. Interval decrease in the size of the mesenteric and retroperitoneal lymph nodes. Electronically signed by: Miguel Garcia M.D. 12/16/2016 7:55 AM Dictated Date/Time: 12/16/2016 7:49 AM
--- NOTE | 2016-12-16 08:06 | DIAGNOSTIC IMAGING REPORT ---
CT OF THE CHEST WITH IV CONTRAST CLINICAL HISTORY: COLON CA COMPARISON STUDY: 09/15/2016 TECHNIQUE: Following the IV administration of 92 mL of Optiray-320, CT of the thorax was performed from the thoracic inlet to the lung bases. Images are reviewed in the axial, sagittal, and coronal planes. IV contrast was administered without complication. A dose lowering technique was utilized adhering to the principles of ALARA. CT DOSE: 737.65 mGy.cm FINDINGS: Thyroid: Imaged portions of the thyroid gland are normal in appearance. Thoracic aorta: The thoracic aorta is normal in course and caliber, noting standard 3-vessel arch anatomy. No aneurysm or dissection is seen. Pulmonary vasculature: The pulmonary trunk is normal in caliber. There are no central filling defects identified to suggest pulmonary embolus. Note that this examination was not protocoled for the evaluation of pulmonary emboli. HEART: The heart is normal in size and configuration, without pericardial effusion. Lungs and pleural spaces: No pleural effusions are visualized. There is no focal pulmonary consolidation. There are left lower lobe calcified granulomas. There is a 6 mm solid left lower lobe pulmonary nodule as visualized in image #192/261. This remains unchanged in size from the prior study. There is a stable 3 mm pleural-based right upper lobe pulmonary nodule as visualized in image #130/261. Mediastinum: Calcified mediastinal lymph nodes remain similar to the prior study Nasrin: Calcified left hilar lymph nodes remain similar to the prior study Axilla: Clear. Upper abdomen: Partially visualized upper abdominal viscera is within normal limits. Skeletal structures: There is an upper thoracic vertebral body hemangioma unchanged the prior study IMPRESSION: 1. No significant change from the preceding examination 2. Stable left lower lobe calcified granulomas and calcified mediastinal and hilar lymph nodes 3. Stable 6 mm solid noncalcified left lower lobe pulmonary nodule Electronically signed by: Miguel Garcia M.D. 12/16/2016 8:04 AM Dictated Date/Time: 12/16/2016 8:00 AM
== END | disposition home or self-care (01) ==
LOC: C.CTS 07:07
PROVIDERS: ATTEND Internal Medicine Hematology & Oncology
DX: C18.2 Malignant neoplasm of ascending colon (principal); R91.1 Solitary pulmonary nodule; R91.8 Other nonspecific abnormal finding of lung field

== ENCOUNTER → 2017-03-17 | Outpatient (CLI) | payer OTHER ==
--- NOTE | 2017-03-17 12:07 | DIAGNOSTIC IMAGING REPORT ---
ABD/PELVIS IV AND ORAL CONT CT DOSE: HISTORY: Colon carcinoma ADENOCARCINOMA OF COLON TECHNIQUE: Multiaxial CT images of the abdomen and pelvis were performed following the use of intravenous and oral contrast. A dose lowering technique was utilized adhering to the principles of ALARA. COMPARISON STUDY: 12/16/2016 FINDINGS: 5 mm nodule left lung base slightly diminished in the prior study of 6 mm. Several small basilar calcified granulomas. Evaluation of the upper abdomen suggest moderately progressive. Portal and peripancreatic and perigastric jaye change. A partially necrotic node inferior to the right hepatic hilum currently measures 2.2 cm increased from 2.1 cm. Both bulky appearance to the pancreatic body density process appears somewhat progressive. Possibly of underlying adenopathy is considered. Anterior perirectal nodes have increased to 2.0 cm perigastric there is increasing 1.9 cm. This represents a 25-30% increase in overall dimension at both sites. Operative changes consistent with prior partial right colectomy are again noted. Bowel pattern currently is nonobstructive. No significant pelvic or inguinal nodes are present the current time. Several benign-appearing nodes within the inguinal region remains stable. Mesenteric nodes are slightly increased in volume. IMPRESSION: 1. Findings highly suspicious for progressive adenopathy of the upper abdomen as discussed. 2. Slightly progressive mesenteric jaye pathology. 3. No change within the pelvis or lower chest. The above report was generated using voice recognition software. It may contain grammatical, syntax or spelling errors. Electronically signed by: Demetrius Moreno M.D. 03/17/2017 12:05 PM Dictated Date/Time: 03/17/2017 11:53 AM
--- NOTE | 2017-03-17 12:41 | DIAGNOSTIC IMAGING REPORT ---
CHEST CT WITH CONTRAST CT DOSE: 1084.44 mGy.cm HISTORY: ADENOCARCINOMA OF COLON TECHNIQUE: Multiaxial CT images of the chest were performed following the intravenous administration of contrast. A dose lowering technique was utilized adhering to the principles of ALARA. COMPARISON: Chest CT 12/16/2016. FINDINGS: The central airways are patent. No pleural effusions. No pneumothorax. Stable 6 mm nodule within the left lower lobe on image 178. Calcified granulomas within the left lower lobe are also unchanged. No new pulmonary nodules. No suspicious lytic or blastic osseous lesions. Periportal lymphadenopathy appears to have regressed. Stable 7 mm right anterior diaphragmatic lymph node. Stable 5 mm lymph node adjacent to the descending thoracic aorta. Increase in size in the left supraclavicular lymph node which measures 2.5 x 1.7 cm, previously measuring 1.2 x 0.8 cm. Calcified mediastinal and left hilar lymph nodes are again noted. Stable mediastinal lymph nodes. The central pulmonary arteries are patent. Normal caliber thoracic aorta. IMPRESSION: 1. Increase in size within a single left supraclavicular lymph node and multiple upper abdominal lymph nodes consistent with progression of metastatic disease. 2. Stable 6 mm nodule within the left lower lobe. Electronically signed by: Macario Chopra M.D. 03/17/2017 12:40 PM Dictated Date/Time: 03/17/2017 12:33 PM
== END | disposition home or self-care (01) ==
LOC: C.CTS 11:28
PROVIDERS: ATTEND Internal Medicine Hematology & Oncology
DX: C18.2 Malignant neoplasm of ascending colon (principal); R91.1 Solitary pulmonary nodule; R59.9 Enlarged lymph nodes, unspecified

== ENCOUNTER → 2017-07-02 | Outpatient (CLI) | payer OTHER ==
--- NOTE | 2017-07-02 12:27 | DIAGNOSTIC IMAGING REPORT ---
CT (CHEST) THORAX WITH CLINICAL HISTORY: 62 years-old Female presenting with adenocarcinoma the colon. TECHNIQUE: Multidetector CT imaging of the chest was performed after the administration of intravenous contrast. IV contrast: 94 mL of Optiray 320. A dose lowering technique was used consistent with the principles of ALARA (as low as reasonably achievable). COMPARISON: 03/17/2017. CT DOSE (mGy.cm): The estimated cumulative dose is 1388.18 mGycm. FINDINGS: Industrial Cleaning Technician topogram: Unremarkable. On soft tissue windows, normal thyroid and thoracic inlet. Left subclavian Mediport terminates in the SVC. Enlarged left supraclavicular lymph node, which now measures 2.8 x 2.2 cm, previously 2.5 x 1.7 cm. Calcified mediastinal and left hilar lymph nodes. Atherosclerosis of the aorta. Four-vessel aortic arch. Normal heart size. No pericardial or pleural effusion. Extensive lymphadenopathy in the upper abdomen. On lung windows, left lower lobe calcified granulomas. Stable solid peripheral 5 mm lower lobe pulmonary nodule (series 4 image 185). Punctate subpleural solid nodule in the right lower lobe (series 4 image 186), unchanged. Minimal dependent changes likely atelectasis. Central airways patent. On bone windows, degenerative changes of the spine. IMPRESSION: 1. Persistent left supraclavicular lymphadenopathy, slightly increased in size. No new sites of lymphadenopathy in the chest. 2. Upper abdominal lymphadenopathy. Please see separately dictated CT of abdomen and pelvis. 3. Evidence of prior granulomatous infection. Electronically signed by: Raphael Collins M.D. 07/02/2017 12:26 PM Dictated Date/Time: 07/02/2017 12:17 PM
--- NOTE | 2017-07-02 12:36 | DIAGNOSTIC IMAGING REPORT ---
ABD/PELVIS IV AND ORAL CONT CT DOSE: HISTORY: Colon carcinoma CANCER TECHNIQUE: Multiaxial CT images of the abdomen and pelvis were performed following the use of intravenous and oral contrast. A dose lowering technique was utilized adhering to the principles of ALARA. COMPARISON STUDY: 03/17/2017. FINDINGS: Lung bases remain clear. Calcified granuloma at the left base is unchanged. There is a 4 mm left lower lobe nodule unchanged from the prior study. Liver is uniform throughout. There has been a prior cholecystectomy. There is now rather confluent partially necrotic lesion involving the peripancreatic and perihepatic hilar region. This is been described previously. Overall dimension is currently increased to 6 x 3.5 cm. And additional and/or satellite nodule posterior to the pancreatic head currently measures 4 x 3.5 cm, moderately increased from the prior study. A nodular density medially posterior to the gastric antrum currently measures 2.2 cm diminished from 3.1 cm. There is no dilatation of the pancreatic or biliary ductal systems. There is evidence for prior gastric and retroperitoneal nodes which now have a more conglomerate appearance with dimensions increasing from 2.0 cm to 23.9 cm.. There are developing mid mesenteric nodes and or Route of the mesentery with current maximum dimensions of 1.3 cm. Additional mesenteric nodes now measure up to 2.2 cm on transaxial image 256. Smaller additional nodes are also present. The pelvic sidewall regions show no significant jaye change. Bladder is midline. Bowel pattern overall is nonobstructive. There are findings of a prior partial colectomy. These findings are unchanged. The inguinal regions appear unremarkable. IMPRESSION: 1. Progressive masslike changes now showing partial necrosis in the region of the pancreatic head, uncinate process, and periportal regions. 2. This adenopathy has increased in volume by 50-75%. 3. Progressive celiac axis and perigastric adenopathy. 4. Progressive and/or interval development of mesenteric jaye change measuring to 2.2 cm. 5. This appearance suggests progressive metastatic change The above report was generated using voice recognition software. It may contain grammatical, syntax or spelling errors. Electronically signed by: Demetrius Moreno M.D. 07/02/2017 12:35 PM Dictated Date/Time: 07/02/2017 12:19 PM
== END | disposition home or self-care (01) ==
LOC: C.CTS 11:36
PROVIDERS: ATTEND Internal Medicine Hematology & Oncology
DX: C18.2 Malignant neoplasm of ascending colon (principal)

== ENCOUNTER → 2017-07-14 | Outpatient (CLI) | payer OTHER ==
[~2017-07-14] MED LIST changes: -OPTIRAY 320 IV PRN
== END | disposition home or self-care (01) ==
LOC: C.PATHSPEC 11:03
PROVIDERS: ATTEND Nurse Practitioner Family
DX: C18.2 Malignant neoplasm of ascending colon (principal)

== ENCOUNTER 2018-02-14 08:13 | Inpatient (IN) ==
[2018-02-14] MEDS ORDERED: ONDANSETRON INJ 2 MG/ML 2 ML VIAL IV PRN (09:17)
[2018-02-14] MEDS ORDERED: POLYETHYLENE (MIRALAX) 17 GM PACK PO PRN (09:17)
[2018-02-14] MEDS ORDERED: HYDROmorphone INJ 2 MG/ML SYR/VIAL ONE (09:23)
[2018-02-14] MEDS ORDERED: HYDROmorphone INJ 2 MG/ML SYR/VIAL IV STA (09:25)
[2018-02-14] MEDS ORDERED: fentaNYL 75 MCG/HR TDSY TD SCH (10:00)
[2018-02-14] MEDS ORDERED: NALOXONE HCL 0.4 MG/1 ML VIAL/CARP IV PRN (10:04)
[2018-02-14] MEDS: SODIUM CHLORIDE 0.9% 1000ML 1,000 ML IV SCH (10:21)
[2018-02-14] MEDS: HYDROmorphone HCL 0.5MG/ML 50 ML CASSETTE IV PRN (10:38)
--- NOTE | 2018-02-14 13:16 | History & Physical Report ---
Date of Service February 14, 2018 Assessment & Plan (1) Abdominal pain: intractable pain, here for pain control, on hospice will continue Fentanyl patch at 75mcg will give Dilaudid 2mg IV stat and then start EXTRACTOR OPERATOR SOLVENT PROCESS pump will try to develop better pain control plan, perhaps increase Fentanyl patch and PO Dilaudid for time being she is is severe pain and just want to get things under control goal will be to go back home on hospice (2) Constipation: continue Miralax daily History of Present Illness Chief Complaint: intractable abdominal pain Primary Care Provider: David Diaz MD 63 yo female with metastatic colon cancer, no longer getting treatment, went home on hospice last week. Main issue was pain control, discharged with Fentanyl patch and Dilaudid PO. Patient's pain started to get worse and hospice rn could not get it controlled on oral medications. Appetite is poor, feeling weak. No dyspnea. Continues to have issues with constipation, taking Miralax. Allergies Allergy/AdvReac Type Severity Reaction Status Date / Time No Known Allergies Allergy Unverified 12/16/16 07:13 Home Medications Home Medications Medication Instructions Recorded Confirmed Type Acetaminophen (Tylenol) 650 mg PO QID PRN #0 tab 03/17/16 History fentanyl 1 patch TRANSDERMAL Q3D #5 ea 02/08/18 Rx hydromorphone 4 mg PO Q3H PRN #60 tab 02/08/18 Rx ondansetron 4 mg PO Q6H PRN #14 tab 02/08/18 Rx polyethylene glycol 3350 [Miralax] 17 g PO DAILY #30 ea 02/08/18 Rx prochlorperazine maleate 5 mg PO Q8H PRN #14 tab 02/08/18 Rx [Compazine] Past Med/Surg History Medical History Colon cancer metastasized to intra-abdominal lymph node DVT prophylaxis Surgical History H/O hemicolectomy Right-hemicolectomy in 2016 for colon cancer S/P cholecystectomy In 2016 with hemicolectomy Social History Current Living Situation: Spouse Other Information That Helps Us Care for You: No Feels Safe at Home: Yes Smoking Status: Former smoker Tobacco Type: cigarettes Do You Dip or Chew Tobacco: No Second Hand Exposure: No Hx Alcohol Use: No Hx Substance Use: No Beliefs That Will Affect Care: None Communication Ability: Impaired Review of Systems All systems reviewed & are unremarkable except as noted in HPI & below Constitutional: + fatigue, + malaise, + weakness and + weight loss; no fever, no chills and no sweats Eyes: no diplopia, no dry eyes and no itchy eyes Ear, Nose, Mouth, Throat: no hearing loss, no nasal discharge, no post nasal drip and no dry mouth Respiratory: no cough, no dyspnea, no dyspnea on exertion, no pain on inspiration and no pain with cough Cardiovascular: no chest pain, no dyspnea, no dyspnea at rest, no dyspnea on exertion and no orthopnea Gastrointestinal: + abdominal pain, + nausea and + constipation; no vomiting and no diarrhea/loose stools Genitourinary (Female): no dysuria, no nocturia and no hematuria Musculoskeletal: no back pain, no neck pain and no myalgia Integumentary: no acne, no rash, no new lesions and no dry skin Neurologic: no gait abnormality, no unsteadiness, no paralysis, no loss of sensation, no tingling and no numbness Psychiatric: + depression and + irritability; no anxiety Physical Exam 2 Vital Signs (Past 24 Hours): Last Vital Signs Temp 36.8 C 02/14/18 13:04 Pulse 102 H 02/14/18 13:04 Resp 16 02/14/18 13:04 BP 113/80 02/14/18 13:04 Pulse Ox 95 02/14/18 13:04 Constitutional: WD/WN, vitals as above Eyes: PERRL, conjunctivae normal, anicteric sclerae ENMT: external ear and nose normal, oropharynx normal Neck: trachea midline, no thyromegaly Respiratory: normal respiratory effort, lungs clear to auscultation Cardiovascular: RRR, no murmur, no edema Gastrointestinal (Abdomen): Inspection/Auscultation: abdomen normal to inspection; + abnormal bowel sounds (hypoactive) Percussion/Palpation: + abdomen tender, + guarding and abdomen soft Musculoskeletal: no cyanosis or clubbing, extremities motor strength 5/5 Skin: no rashes, warm and dry Neurologic: patellar DTR's 2+ bilat, sensation intact and PERRL, EOMI, accommodation nl, no face palsy, no dysarthria Lymphatic: no cervical or axillary lymphadenopathy Code Status & VTE Plan Code Status DNR VTE Prophylaxis Plan VTE Prophylaxis will be ordered: No Reason for no VTE drug order: Drug declined by patient Reason for no VTE mechanical prophylaxis: Refusal of treatmnt by pt _ (1) Abdominal pain Abdominal location: generalized Qualified Code(s): R10.84 - Generalized abdominal pain
[2018-02-14] MEDS: CHECK FENTANYL PATCH PLACEMENT SCH ×2 (15:16→23:58)
[2018-02-15] MEDS ORDERED: HEPARIN 100 UNIT/ML 5ML FLUSH FLUSH PRN (00:24)
[2018-02-15] MEDS: ACETAMINOPHEN 325 MG TAB PO PRN ×2 (06:41→14:52)
[2018-02-15] MEDS: HYDROmorphone HCL 0.5MG/ML 50 ML CASSETTE IV PRN ×4 (06:58→22:39)
[2018-02-15] MEDS: CHECK FENTANYL PATCH PLACEMENT SCH ×3 (09:08→23:39)
[2018-02-15] MEDS ORDERED: HYDROmorphone HCL 0.5MG/ML 50 ML CASSETTE IV PRN (10:13)
[2018-02-15] MEDS: SODIUM CHLORIDE 0.9% 1000ML 1,000 ML IV SCH (10:16)
--- NOTE | 2018-02-15 10:59 | Hospitalist Progress Note ---
Date of Service February 15, 2018 Assessment & Plan (1) Abdominal pain: intractable pain, here for pain control, on hospice will continue Fentanyl patch at 75mcg TOSSER--pt has not been using the PRN self dosing per nursing as she is in so much pain and not aware of timing Discussed with nursing. Will increase the continuous basal dose and monitor with that Howard if pt is agreeable to placement goal will be to go back home on hospice (2) Constipation: continue Miralax daily Subjective Pt is writhing on the bed in pain. She feels that the TOSSER is not helping her abd pain at all. She was not able to eat due to the pain. Pt denies fever, SOB , chest pain, n/v/c/d, LE pain or swelling. Per nursing, pt has not been using the PRN TOSSER dosing. Nursing also reports that pt is in too much pain to get up to go to the bathroom and has been urinating in her bed. She has increased pain when they are cleaning her up. Nursing requests howard for these reasons. Pertinent positives and negatives reviewed in HPI--all others negative Physical Exam 2 Vital Signs (Past 24 Hours): Last Vital Signs Temp 37.4 C 02/15/18 07:10 Pulse 105 H 02/15/18 07:10 Resp 16 02/15/18 07:10 BP 107/72 02/15/18 07:10 Pulse Ox 93 02/15/18 07:10 Constitutional: + ill appearing and + in distress writhing in pain Eyes: normal visual ramirez by confrontation and + anicteric sclerae Neck: normal visual inspection and trachea midline Respiratory: normal respiratory effort, lungs clear to auscultation Cardiovascular: Rate/Rhythm: regular rate and regular rhythm Gastrointestinal (Abdomen): Inspection/Auscultation: + abdomen distended Percussion/Palpation: + abdomen tender and abdomen soft Musculoskeletal: Head/Neck/Chest: normocephalic and head atraumatic negative for edema, peripheral pulses intact Skin: no rashes, warm and dry Neurologic: awake; not confused Speech / Cognition: normal speech Psychiatric: Orientation: alert Mood: + anxious mood _ (1) Abdominal pain Abdominal location: generalized Qualified Code(s): R10.84 - Generalized abdominal pain
[2018-02-15] MEDS ORDERED: Nursing to Pharmacy Communication ONE ×2 (14:39→16:42)
[2018-02-16] MEDS: CHECK FENTANYL PATCH PLACEMENT SCH ×2 (08:00→16:04)
[2018-02-16] MEDS: SODIUM CHLORIDE 0.9% 1000ML 1,000 ML IV SCH (13:56)
[2018-02-16] MEDS ORDERED: HYDROmorphone/NSS 100 MG/100 ML BAG IV SCH (14:00)
--- NOTE | 2018-02-16 17:41 | Hospitalist Progress Note ---
Date of Service February 16, 2018 Assessment & Plan (1) Abdominal pain: 63 yo female with metastatic colon cancer, no longer getting treatment, went home on hospice last week, intractable pain, here for pain control, on hospice as an outpatient will continue Fentanyl patch at 75mcg Patient's level of consciousness prevents her from using the CHIEF SUSTAINABILITY OFFICER she will be transitioned to Dilaudid infusion Foleyis placed Her goal of returning with home hospice may be an achievable at this point time (2) Constipation: continue Miralax daily Subjective Patient was obtunded and jaundiced during my exam with only minimal movement. Family is at the bedside and states that the patient looks more comfortable to them Review of Systems Unobtainable due to cognitive status Physical Exam 2 Vital Signs (Past 24 Hours): Last Vital Signs Temp 37.4 C 02/15/18 20:00 Pulse 108 H 02/15/18 23:18 Resp 21 02/15/18 20:00 BP 94/64 L 02/15/18 23:18 Pulse Ox 91 02/15/18 20:00 Patient is jaundiced to the eye has labored breathing has a tachycardic cardiac exam abdomen is with normal bowel sounds and soft _ (1) Abdominal pain Abdominal location: generalized Qualified Code(s): R10.84 - Generalized abdominal pain
[2018-02-17] MEDS: CHECK FENTANYL PATCH PLACEMENT SCH (00:17)
--- NOTE | 2018-02-17 07:51 | Discharge Summary ---
Date of Service February 17, 2018 PT time of is 405 am Admission HPI Per Admitting Provider 63 yo female with metastatic colon cancer, no longer getting treatment, went home on hospice last week. Main issue was pain control, discharged with Fentanyl patch and Dilaudid PO. Patient's pain started to get worse and hospice entrance attendant could not get it controlled on oral medications. Appetite is poor, feeling weak. No dyspnea. Continues to have issues with constipation, taking Miralax. Principal Diagnosis metastatic colon cancer Discharge Exam Pt was pronounced by rn's Discharge Data Allergies Allergy/AdvReac Type Severity Reaction Status Date / Time No Known Allergies Allergy Unverified 12/16/16 07:13 Consultations 02/14/18 09:18 Consult Case Management - Discharge Planning Routine Hospital Course (1) Abdominal pain: 63 yo female with metastatic colon cancer, no longer getting treatment, went home on hospice last week, intractable pain, here for pain control, on hospice as an outpatient will continue Fentanyl patch at 75mcg Patient's level of consciousness prevents her from using the NURSING TEACHER she will be transitioned to Dilaudid infusion pt eventually succumbed to her cancer at 405 am on 02/17/18 (2) Constipation: continue Miralax daily Total Time Total Time Spent Total Time Spent (In Minutes): less than 30 minutes were required to prepare discharge Discharge Plan Discharge Items Disposition: Follow-up/Referrals: David Diaz MD [Primary Care Provider] - Admission Data Admit Date/Time: 02/14/18 09:04 Attending Provider: Ishaan Kruse Admit Provider: Ishaan Kruse Primary Care Provider: David Diaz Other Providers: Parisa Qaun Service: Oncology Other DC Date/Time DO NOT enter until pt leaves facility: 02/17/18 06:30
== END 2018-02-17 06:30 | disposition expired | DRG 948 ==
LOC: 4E 09:04 → SUATTDRO 09:04